=== PATIENT | male | born 1950 | race Caucasian/White ===

== ENCOUNTER 2024-01-07 12:59 | Emergency (ER) | payer OTHER ==
[~2024-01-07] VITALS: Ht 172.7 cm; Wt 64.7 kg
[2024-01-07] MEDS ORDERED: PROCARDIA XL30 MG PO (13:24)
[2024-01-07] MEDS ORDERED: PROTONIX40 MG PO (13:25)
[2024-01-07] MEDS ORDERED: BUSPIRONE HCL10 MG PO (13:25)
[2024-01-07] MEDS ORDERED: FLOMAX0.4 MG PO (13:25)
[2024-01-07] MEDS ORDERED: ACETAMINOPHEN325 M1 PO (13:26)
[2024-01-07 13:46] LABS: AMPHETAMINES, URINE NEGATIVE (NEGATIVE); BARBITURATES, URINE NEGATIVE (NEGATIVE); BENZODIAZEPINE, URINE NEGATIVE (NEGATIVE); BUPRENORPHINE, URINE NEGATIVE (NEGATIVE); CANNABINOID, URINE POSITIVE (NEGATIVE); COCAINE, URINE NEGATIVE (NEGATIVE); ECSTASY, URINE NEGATIVE (NEGATIVE); FENTANYL, URINE NEGATIVE (NEGATIVE); METHADONE, URINE NEGATIVE (NEGATIVE); OPIATES, URINE NEGATIVE (NEGATIVE); OXYCODONE, URINE NEGATIVE (NEGATIVE); PHENCYCLIDINE, URINE NEGATIVE (NEGATIVE)
[2024-01-07 14:08] LABS: BASOPHILS 1.1 % (0-2); EOSINOPHILS 2.3 % (0-6); HEMATOCRIT 42.2 % (35.0-50.0); HEMOGLOBIN 14.1 g/dL (12.0-18.0); LYMPHOCYTES 12.4 % (24-44); MCH 33.5 (27-36); MCHC 33.4 g/dl (30-36); MCV 100.2 fl (81-99); MONOCYTES 8.1 % (0-12); NEUTROPHILS 76.1 % (39-80); PLATELET COUNT 190 K/uL (140-440); RBC 4.21 M/ul (4.3-5.7); RDW 13.8 (10.5-15.0)
[2024-01-07] MEDS ORDERED: LORazepam 1 MG TAB PO ONE (14:15)
[2024-01-07] MEDS ORDERED: ACETAMINOPHEN 325 MG TAB PO ONE (14:15)
[2024-01-07 14:22] LABS: ACETAMINOPHEN 0 ug/mL (10-30); ALBUMIN 3.7 g/dL (3.4-5.0); ALCOHOL, MEDICAL <3 ng/dL (<3); ANION GAP 13.8 (7-21); BUN/CREATININE RATIO 19.48 (6.0-28.6); CALCIUM 9.1 mg/dL (8.5-10.1); CREATININE, SERUM 0.77 mg/dL (0.70-1.30); POTASSIUM 3.8 mmol/L (3.5-5.1); SALICYLATE 0.9 mg/dL (2.8-20.0)
[2024-01-07 14:23] LABS: BILIRUBIN, URINE NEGATIVE (negative); BLOOD/HGB, URINE NEGATIVE (Negative); KETONE, URINE NEGATIVE (Negative); LEUK ESTERASE, URINE NEGATIVE (negative); NITRITE, URINE NEGATIVE (negative)
[2024-01-07 14:34] LABS: INFLUENZA B NAA NEGATIVE (NEGATIVE); RESPIRATORY SYNCYTIAL VIR NAA NEGATIVE (NEGATIVE)
[2024-01-07 14:43] LABS: ALBUMIN/GLOBULIN RATIO 1.09 (1.1-2.4); BILIRUBIN, TOTAL 0.6 ng/dL (0.2-1.0); PROTEIN, TOTAL 7.1 g/dL (6.4-8.2); TSH, 3RD GENERATION 1.358 uIU/mL (0.358-3.740)
[2024-01-07] MEDS ORDERED: TAMSULOSIN HCL 0.4 MG CAP PO SCH (20:28)
[2024-01-07] MEDS ORDERED: ACETAMINOPHEN 325 MG TAB PO PRN (20:30)
[2024-01-07] MEDS ORDERED: MELATONIN 3 MG TAB PO SCH (21:00)
[2024-01-07] MEDS ORDERED: QUETIAPINE FUMARATE 25 MG TAB PO SCH (21:00)
[2024-01-07] MEDS ORDERED: busPIRone HCL 5 MG TAB PO SCH (21:00)
[2024-01-08] MEDS ORDERED: LIDOCAINE HCL 4% 1 EACH PATCH TD ONE (00:15)
[2024-01-08] MEDS ORDERED: QUETIAPINE FUMARATE 25 MG TAB PO ONE (00:45)
[2024-01-08] MEDS ORDERED: OLANZapine 2.5 MG TAB PO ONE (00:45)
[2024-01-08] MEDS ORDERED: KETOROLAC TROMETHAMINE 30 MG/ML VIAL IM ONE (00:45)
[2024-01-08] MEDS ORDERED: COZAAR100 MG PO (20:54)
[2024-01-09 08:39] VITALS: BP 151/85
[2024-01-09] MEDS ORDERED: LOSARTAN POTASSIUM 100 MG TAB PO SCH (09:00)
--- NOTE | 2024-01-09 19:12 | EKG ---
[facility] [address] [facility] [place] [address] Signed Sinus rhythm with occasional premature ventricular complexes Left axis deviation Abnormal ECG No previous ECGs available Confirmed by Nubia Castillo MD ([id number]) on 01/09/2024 7:12:31 PM Electronically Signed By: NUBIA CASTILLO MD 01/09/241911 PATIENT NAME: CROW MUNOZ Electrocardiogram DATE OF : 52 PHYSICIAN: NUBIA CASTILLO MD REPORT #: [id number] REPORT IS CONFIDENTIAL AND NOT TO BE RELEASED WITHOUT AUTHORIZATION
== END 2024-01-09 08:39 ==
LOC: ED 12:59
PROVIDERS: Emergency Medicine
DX: F32.A Depression, unspecified (principal); R54 Age-related physical debility; R62.7 Adult failure to thrive; T74.91XA Unspecified adult maltreatment, confirmed, initial encounter; Z88.5 Allergy status to narcotic agent; Z88.8 Allergy status to other drugs, medicaments and biological substances; Z79.899 Other long term (current) drug therapy
CPT/HCPCS: 36415; 80053; 80307; 81003; 84443; 85025; 87502; 93005; 93010; 96372; 99285-25; A9270; A9270-GY; G0480; J1885; U0002